=== PATIENT | female | born 1960 | race Caucasian/White ===

== ENCOUNTER → 2016-10-04 | Outpatient (REF) | payer OTHER ==
[2016-10-04 18:01] LABS: LUTEINIZING HORMONE 39.9 mIU/mL
[2016-10-04 18:02] LABS: FOLLICLE STIMULATING HORMONE 128.2 mIU/mL
== END ==
LOC: M LAB REF 16:13
PROVIDERS: ATTEND Nurse Practitioner Family
DX: N95.9 Unspecified menopausal and perimenopausal disorder (principal)

== ENCOUNTER 2016-10-16 14:13 | Emergency (ER) | payer OTHER ==
[2016-10-16] MEDS ORDERED: GI COCKTAIL 50ML BTL(HYOSCYAMINE/MAALOX/LIDOCAINE VISCOUS)(1:3:1) As Ordered ONE (14:42)
[2016-10-16] MEDS ORDERED: ASPIRIN 81 MG CHEW TABLET As Ordered ONE (14:42)
[2016-10-16 15:03] LABS: BASO # 0.1 K/mm3 (0.0-0.2); BASO % 2.1 % (0.0-1.0); EOS # 0.2 K/mm3 (0.0-0.50); LARGE UNSTAINED CELL # 0.1 K/mm3 (0.0-0.4); LARGE UNSTAINED CELL % 2.1 % (0.0-4.0); LYMPH # 1.2 K/mm3 (1.5-4.5); LYMPH % 20.2 % (24.0-44.0); MEAN CORPUSCULAR HGB CONC 33.9 g/dl (32.0-36.5); MEAN CORPUSCULAR VOLUME 91.5 fl (80.0-96.0); MONO # 0.3 K/mm3 (0.0-0.8); MONO % 6.2 % (0.0-5.0); NEUTROPHILS # 3.7 K/mm3 (1.8-7.7); NEUTROPHILS % 66.5 % (36.0-66.0); PLATELET COUNT, AUTOMATED 246 k/mm3 (150-450); RED CELL DISTRIBUTION WIDTH 13.6 % (11.5-14.5); WHITE BLOOD COUNT 5.5 K/mm3 (4.0-10.0)
[2016-10-16 15:28] LABS: ANION GAP 8 MEQ/L (8-16); BLOOD UREA NITROGEN 20 MG/DL (7-18); CALCIUM LEVEL 9.1 MG/DL (8.5-10.1); CARBON DIOXIDE LEVEL 28 MEQ/L (21-32); CHLORIDE LEVEL 108 MEQ/L (98-107); CREATININE FOR GFR 0.77 MG/DL (0.55-1.02); GLOMERULAR FILTRATION RATE > 60.0 (>51); GLUCOSE, FASTING 106 MG/DL (70-105); POTASSIUM SERUM 4.1 MEQ/L (3.5-5.1); SODIUM LEVEL 144 MEQ/L (136-145)
[2016-10-16] MEDS ORDERED: ISOVUE-370 76% 100ML VIAL (Q9967) As Ordered ONE (16:07)
--- NOTE | 2016-10-16 21:40 | EDDOCDS ---
Nurse's Notes [facility] Name: Radha Azul Age: 55 yrs Sex: Female : 1960 Arrival Date: 10/16/2016 Time: 14:13 Bed OBSERVATION Private MD: Cathy Benedict Diagnosis: Chest pain, unspecified Presentation: 10/16 14:22 Presenting complaint: Patient states: chest pains for a couple days has worsened. hs1 Patient points to center of chest. Reports pain does not move anywhere however pain in back between shoulder blades feels like pressure. 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 Patient reports pain is different today. Aspirin was not taken prior to arrival. Adult Sepsis Screening: The patient does not have new or worsening altered mentation. Patient's respiratory rate is less than 22. Systolic blood pressure is greater than 100. Patient has a qSOFA score of 0- Negative Sepsis Screen. Suicide/Homicide risk assessment- the patient denies having any suicidal and/or homicidal ideations and does not present with any other emotional, behavioral or mental health complaints. 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 Transition of care: patient was not received from another setting of care. Red Flag criteria, patient assessed and taken directly to a bed. 14:22 Acuity: LEONARDO Level 2 hs1 14:22 Method Of Arrival: Walkin/Carried/Asstd hs1 Triage Assessment: 14:37 General: Appears in no apparent distress, comfortable, Behavior is appropriate for age, hs1 cooperative. Pain: Location: mid-sternal area Pain currently is 3 out of 10 on a pain scale. HIV screening NA for this visit Offered previously. Cardiovascular: Chest pain is described as mild, radiates Does not radiate. episodes are continuous began couple days ago. 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 Ambien 12.5 mg Oral nightly 2. Iron CR 250 mg Oral cpER 3. Estroven 155 mg oral cap 4. multivitamin Oral cap daily - PMHx: Anemia; insomnia; - PSHx: Knee surgery- Left; D & C; - Social history: Smoking status: Patient states was never smoker of tobacco. No barriers to communication noted, The patient speaks fluent Kiswahili, Speaks appropriately for age. - Family history: Not pertinent. - : The pt / caregiver states he / she is not on anticoagulants. Home medication list is obtained from the patient. - Exposure Risk Screening:: None identified. Screenin:49 Screening information is obtained from the patient. Fall risk: No risks identified. kc3 Assistance ADL's: requires no assistance with activities of daily living. Abuse/DV Screen: The patient / caregiver reports he/she is: not in a situation that causes fear, pain or injury. Nutritional screening: No deficits noted. Advance Directives: Currently, there is no health care proxy. home support is adequate. Assessment: 15:47 General: Appears in no apparent distress, comfortable, Behavior is appropriate for age, kc3 cooperative. Pain: Location: chest Pain currently is 3 out of 10 on a pain scale. Neurological: Level of Consciousness is awake, alert, obeys commands, Oriented to person, place, time. Cardiovascular: Rhythm is sinus rhythm Chest pain quality is pressure, radiates Does not radiate. Respiratory: Respiratory effort is even, unlabored, Respiratory pattern is regular, symmetrical. Derm: Skin is pink, warm & dry. Musculoskeletal: Circulation, motion, and sensation intact. 16:40 General: Appears in no apparent distress, comfortable, Behavior is appropriate for age, kc3 cooperative. Pain: Location: chest Pain currently is 2 out of 10 on a pain scale. Neurological: Level of Consciousness is awake, alert, obeys commands, Oriented to person, place, time. Cardiovascular: Rhythm is sinus rhythm. Respiratory: Respiratory effort is even, unlabored, Respiratory pattern is regular, symmetrical. Derm: Skin is pink, warm & dry. 17:52 General: Appears in no apparent distress, comfortable, Behavior is appropriate for age, kc3 cooperative. Pain: Location: chest. Neurological: Level of Consciousness is awake, alert, obeys commands. Cardiovascular: Rhythm is sinus rhythm. Respiratory: Respiratory effort is even, unlabored, Respiratory pattern is regular, symmetrical. Derm: Skin is pink, warm & dry. 18:45 Pain: Location: chest Pain currently is 1 out of 10 on a pain scale. Neurological: kc3 Level of Consciousness is awake, alert, obeys commands, Oriented to person, place, time. Cardiovascular: Rhythm is sinus rhythm. Respiratory: Respiratory effort is even, unlabored. Derm: Skin is pink, warm & dry. 19:13 General: Appears in no apparent distress, comfortable, Behavior is appropriate for age, kc3 cooperative. 19:33 General: Appears in no apparent distress, comfortable, Behavior is appropriate for age, af2 cooperative. General: Assumed care of pt at this time from ANDRIY Guy. Pt updated regarding plan of care at this time. . Neurological: Level of Consciousness is awake, alert, obeys commands, Oriented to person, place, time. Cardiovascular: Rhythm is sinus rhythm No ectopy. Chest pain is denied. Respiratory: Airway is patent Respiratory effort is even, unlabored, Breath sounds are clear bilaterally. Derm: Skin is pink, warm & dry. 20:30 General: Appears in no apparent distress, comfortable, Behavior is appropriate for age, af2 cooperative. Neurological: Level of Consciousness is awake, alert, obeys commands, Oriented to person, place, time. Respiratory: Airway is patent Respiratory effort is even, unlabored. Derm: Skin is normal. 21:38 General: Appears in no apparent distress, comfortable, Behavior is appropriate for age, af2 cooperative. Neurological: Level of Consciousness is awake, alert, obeys commands, Oriented to person, place, time. Respiratory: Airway is patent Respiratory effort is even, unlabored. Derm: Skin is pink, warm & dry. Vital Signs: 14:14 BP 113 / 74; Pulse 74; Resp 18 S; Temp 97.6(O); Pulse Ox 98% on R/A; Weight 65.77 kg dd6 (R); Height 5 ft. 4 in. (162.56 cm) (R); 14:41 BP 135 / 75 (auto/); kc3 14:42 Pulse 70 MON; Pulse Ox 98% ; kc3 14:58 BP 149 / 79 (auto/); kc3 14:58 Pulse 72 MON; Pulse Ox 97% ; kc3 15:22 BP 128 / 80 (auto/); kc3 15:22 Pulse 66 MON; Pulse Ox 96% ; kc3 15:26 BP 123 / 62 (auto/); kc3 15:27 Pulse 66 MON; Pulse Ox 96% ; kc3 15:41 BP 129 / 76 (auto/); kc3 15:42 Pulse 70 MON; Pulse Ox 96% ; kc3 15:56 BP 124 / 75 (auto/); kc3 15:57 Pulse 70 MON; Pulse Ox 96% ; kc3 16:11 BP 132 / 77 (auto/); kc3 16:11 Pulse 64 MON; Pulse Ox 96% ; kc3 16:26 BP 127 / 69 (auto/); kc3 16:26 Pulse 62 MON; Pulse Ox 97% ; kc3 16:41 BP 122 / 65 (auto/); kc3 16:42 Pulse 66 MON; Pulse Ox 97% ; kc3 16:56 Pulse 68 MON; Pulse Ox 97% ; kc3 16:56 BP 123 / 67 (auto/); kc3 17:11 BP 122 / 67 (auto/); kc3 17:12 Pulse 64 MON; Pulse Ox 97% ; kc3 17:25 Pulse 66 MON; Pulse Ox 97% ; kc3 17:26 BP 128 / 71 (auto/); kc3 17:41 BP 120 / 66 (auto/); kc3 17:42 Pulse 72 MON; Pulse Ox 94% ; kc3 19:26 BP 109 / 58 (auto/); af2 19:27 Pulse 68 MON; Resp 18 S; Pulse Ox 97% on R/A; af2 19:41 BP 107 / 61 (auto/); af2 19:42 Pulse 70 MON; Resp 18 S; Pulse Ox 97% ; af2 19:56 BP 102 / 60 (auto/); af2 19:57 Pulse 78 MON; Resp 18; Pulse Ox 97% on R/A; af2 20:11 BP 110 / 66 (auto/); af2 20:12 Pulse 74 MON; Resp 18 S; Pulse Ox 96% on R/A; af2 21:39 BP 114 / 67; Pulse 78; Resp 18 S; Temp 96.8(O); Pulse Ox 97% on R/A; Pain 0/10; af2 14:14 Body Mass Index 24.89 (65.77 kg, 162.56 cm) dd6 Vitals: 14:14 Log In Time: October 16, 2016 at 14:12. dd6 14:15 RN notified that patient meets Red Flag criteria. dd6 ED Course: 14:14 Patient visited by Bhanu Stone PCA. dd6 14:14 Cathy Benedict is Private Physician. dd6 14:14 Patient moved to Waiting dd6 14:16 Patient moved to I6 / 28 hs1 14:24 EKG done. (by ED staff). Reviewed by Estephanie Reyes MD. ct3 14:25 Triage Initiated hs1 14:27 Mannie Reyes MD is Attending Physician. br1 14:27 Malena Valero,RN is Primary Nurse. br1 14:27 Patient moved to 9 br1 14:39 Patient visited by Mannie Reyes MD. br1 14:56 Patient visited by Sofia Jain RN. ead 14:56 Basic Metabolic Profile Sent. ead 14:56 CBC with Diff Sent. ead 14:56 Cardiac Injury Profile Sent. ead 14:57 Troponin Sent. ead 14:57 Inserted saline lock: 20 gauge in right antecubital area and blood collected. The ead patient tolerated the procedure well. 15:24 Patient visited by Malena Valero RN. kc3 15:49 The patient / caregiver is instructed regarding the plan of care and ED course. Cardiac kc3 monitor on. Pulse ox on. NIBP on. 16:26 [facility] Payment Agreement was scanned into [employer] and attached to record. ks16 16:27 Patient visited by Malena Valero,ANDRIY. kc3 17:07 Patient visited by Mannie Reyes MD. br1 17:07 Patient visited by Mannie Reyes MD. br1 17:50 Patient visited by Malena Valero RN. kc3 18:10 Patient moved to OBSERVATION br1 19:07 Alyse Rivera,RN is Primary Nurse. af2 19:35 Patient visited by Alyse Rivera RN. af2 19:35 No procedures done that require assistance. af2 19:36 Patient visited by Mannie Reyes MD. br1 20:32 EKG done. (by ED staff). Reviewed by Mannie Reyes MD. ajs 21:26 Cathy Benedict is Referral Physician. br1 21:26 Demario Ogden is Referral Physician. br1 21:39 Discontinued IV lock intact, bleeding controlled, pressure dressing applied, No af2 redness/swelling at site. Administered Medications: 14:45 Drug: Aspirin 324 mg [aspirin 81 mg chewable tablet (4 tabs)] Route: PO; ead 14:45 Drug: GI Cocktail - (Alum-Mag Hydroxide-Simeth Suspension 225 mg-200 mg-25 mg/5 mL 30 ead ml, Lidocaine Liquid 2 % 10 ml, Hyoscyamine Liquid 10 ml) Route: PO; 17:34 Drug: Nitrostat 0.4 mg [Nitrostat 0.4 mg sublingual tablet (1 tabs)] Route: Sublingual; kc3 18:30 Drug: Nitrostat 0.4 mg [Nitrostat 0.4 mg sublingual tablet (1 tabs)] Route: Sublingual; kc3 Order Results: Lab Order: Basic Metabolic Profile; SPEC'M 10/16/16 14:54 Test: GLUCOSE, FASTING; Value: 106; Range: 70-105; Abnormal: Above high normal; Units: MG/DL; Status: F Test: BLOOD UREA NITROGEN; Value: 20; Range: 7-18; Abnormal: Above high normal; Units: MG/DL; Status: F Test: CREATININE FOR GFR; Value: 0.77; Range: 0.55-1.02; Units: MG/DL; Status: F Test: GLOMERULAR FILTRATION RATE; Value: > 60.0; Range: >51; Status: F Test: SODIUM LEVEL; Value: 144; Range: 136-145; Units: MEQ/L; Status: F Test: POTASSIUM SERUM; Value: 4.1; Range: 3.5-5.1; Units: MEQ/L; Status: F Test: CHLORIDE LEVEL; Value: 108; Range: 98-107; Abnormal: Above high normal; Units: MEQ/L; Status: F Test: CARBON DIOXIDE LEVEL; Value: 28; Range: 21-32; Units: MEQ/L; Status: F Test: ANION GAP; Value: 8; Range: 8-16; Units: MEQ/L; Status: F Test: CALCIUM LEVEL; Value: 9.1; Range: 8.5-10.1; Units: MG/DL; Status: F Test Note: ; Units are mL/min/1.73 m2 Chronic Kidney Disease Staging per NKF: Stage I & II GFR >=60 Normal to Mildly Decreased Stage III GFR 30-59 Moderately Decreased Stage IV GFR 15-29 Severely Decreased Stage V GFR <15 Very Little GFR Left ESRD GFR <15 on C PYTHON DEVELOPER Lab Order: CBC with Diff; SPEC'M 10/16/16 14:54 Test: WHITE BLOOD COUNT; Value: 5.5; Range: 4.0-10.0; Units: K/mm3; Status: F Test: RED BLOOD COUNT; Value: 4.74; Range: 4.00-5.40; Units: M/mm3; Status: F Test: HEMOGLOBIN; Value: 14.7; Range: 12.0-16.0; Units: g/dl; Status: F Test: HEMATOCRIT; Value: 43.4; Range: 36.0-47.0; Units: %; Status: F Test: MEAN CORPUSCULAR VOLUME; Value: 91.5; Range: 80.0-96.0; Units: fl; Status: F Test: MEAN CORPUSCULAR HEMOGLOBIN; Value: 31.0; Range: 27.0-33.0; Units: pg; Status: F Test: MEAN CORPUSCULAR HGB CONC; Value: 33.9; Range: 32.0-36.5; Units: g/dl; Status: F Test: RED CELL DISTRIBUTION WIDTH; Value: 13.6; Range: 11.5-14.5; Units: %; Status: F Test: PLATELET COUNT, AUTOMATED; Value: 246; Range: 150-450; Units: k/mm3; Status: F Test: NEUTROPHILS %; Value: 66.5; Range: 36.0-66.0; Abnormal: Above high normal; Units: %; Status: F Test: LYMPH %; Value: 20.2; Range: 24.0-44.0; Abnormal: Below low normal; Units: %; Status: F Test: MONO %; Value: 6.2; Range: 0.0-5.0; Abnormal: Above high normal; Units: %; Status: F Test: EOS %; Value: 3.0; Range: 0.0-3.0; Units: %; Status: F Test: BASO %; Value: 2.1; Range: 0.0-1.0; Abnormal: Above high normal; Units: %; Status: F Test: LARGE UNSTAINED CELL %; Value: 2.1; Range: 0.0-4.0; Units: %; Status: F Test: NEUTROPHILS #; Value: 3.7; Range: 1.8-7.7; Units: K/mm3; Status: F Test: LYMPH #; Value: 1.2; Range: 1.5-4.5; Abnormal: Below low normal; Units: K/mm3; Status: F Test: MONO #; Value: 0.3; Range: 0.0-0.8; Units: K/mm3; Status: F Test: EOS #; Value: 0.2; Range: 0.0-0.50; Units: K/mm3; Status: F Test: BASO #; Value: 0.1; Range: 0.0-0.2; Units: K/mm3; Status: F Test: LARGE UNSTAINED CELL #; Value: 0.1; Range: 0.0-0.4; Units: K/mm3; Status: F Lab Order: Cardiac Injury Profile; [facility] 10/16/16 14:54 Test: CPK CREATINE PHOSPHOKINASE; Value: 71; Range: 26-192; Units: U/L; Status: F Test: CK-MB VALUE MASS; Value: 1.0; Range: 0.0-3.6; Units: NG/ML; Status: F Test: MB/CK RELATIVE INDEX; Value: 1.40; Range: < OR =4; Status: F Test Note: ; DIAGNOSIS CRITERIA MMB ng/ml Relative Index (RI) NON-AMI < or = 5 N/A REID ZONE > 5 < or = 4 AMI > 5 > 4 Lab Order: Troponin; [facility] 10/16/16 14:54 Test: TROPONIN I; Value: < 0.02; Range: < 0.10; Units: NG/ML; Status: F Test Note: ; Troponin I Reference Interval for [employer] LOCI: 99th Percentile= 0.00-0.045 ng/ml Risk Stratification: <= 0.10 ng/ml Decreased Risk for Adverse Clinical Events. 0.10-1.50 ng/ml Increased Risk for Adverse Clinical Events. Evaluation of additional criterion and/or repeat testing in 2-6 hours is suggested to rule out myocardial damage. >= 1.50 ng/ml Indicative of Myocardial Injury. Lab Order: CARDIAC MARKER PANEL; [facility] 10/16/16 20:19 Test: CPK CREATINE PHOSPHOKINASE; Value: 58; Range: 26-192; Units: U/L; Status: F Test: CK-MB VALUE MASS; Value: 1.0; Range: 0.0-3.6; Units: NG/ML; Status: F Test: MB/CK RELATIVE INDEX; Value: 1.72; Range: < OR =4; Status: F Test: TROPONIN I; Value: < 0.02; Range: < 0.10; Units: NG/ML; Status: F Test Note: ; DIAGNOSIS CRITERIA MMB ng/ml Relative Index (RI) NON-AMI < or = 5 N/A REID ZONE > 5 < or = 4 AMI > 5 > 4 Outcome: 16:27 CT Study completed. kc3 19:35 Discharge Assessment: patient administered narcotics - no. Condition: stable. Property af2 :Personal belongings accompany Pt. 21:26 Discharge ordered by Provider. br1 21:37 The following High Risk Discharge criteria are identified: None. Discharged to home af2 ambulatory. Discharge instructions given to patient, Instructed on discharge instructions, follow up and referral plans. Demonstrated understanding of instructions, Pt was receptive of discharge instructions/ teaching. 21:39 Patient left the ED. af2 Signatures: Mannie Reyes MD MD br1 Bhanu Stone, MEDICAL TERMINOLOGIST MEDICAL TERMINOLOGIST dd6 Jyothi Aden RN RN hs1 Agustina Webster, MEDICAL TERMINOLOGIST MEDICAL TERMINOLOGIST ct3 Rema Bey EmilyRN RN Alyse Cardona RN RN af2 Malena Valero RN RN kc3 Eli Stroud, Reg Reg ks16 MTDD
--- NOTE | 2016-10-16 21:40 | EDDOCDS ---
Physician Documentation [facility] Name: Radha Azul Age: 55 yrs Sex: Female : 1960 Arrival Date: 10/16/2016 Time: 14:13 Bed OBSERVATION Private MD: Cathy Benedict Disposition: 10/16/16 21:26 Discharged to Home/Self Care. Impression: Chest pain, unspecified. - Condition is Stable. - Discharge Instructions: Nonspecific Chest Pain. - Medication Reconciliation, Local Pharmacy Hours form. - Follow up: Cathy Benedict; When: 2 - 3 days; Reason: Recheck today's complaints. Follow up: Demario Ogden; When: 2 - 3 days; Reason: Recheck today's complaints. - Problem is new. - Symptoms are resolved. - Notes: You were seen in the ED for chest pain. Bloodwork along with EKG of the heart, chest Xray, cardiac monitoring, chest Xray and CT scan of the chest showed no acute findings. We have consulted with cardiology as well. As you are feeling better you may return home to follow up with both your primary doctor as well as your hospital social worker this week for rechecks in their offices - please call to arrange to be seen. Return to the ED for any return of chest pain, trouble breathing, lightheadedness, loss of consciousness or any other concerns. Historical: - Allergies: Keflex; - Home Meds: 1. Ambien 12.5 mg Oral nightly 2. Iron CR 250 mg Oral cpER 3. Estroven 155 mg oral cap 4. multivitamin Oral cap daily - PMHx: Anemia; insomnia; - PSHx: Knee surgery- Left; D & C; - Social history: Smoking status: Patient states was never smoker of tobacco. No barriers to communication noted, The patient speaks fluent Maltese, Speaks appropriately for age. - Family history: Not pertinent. - : The pt / caregiver states he / she is not on anticoagulants. Home medication list is obtained from the patient. - Exposure Risk Screening:: None identified. 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 4 in. (162.56 cm) (R); 14:41 BP 135 / 75 (auto/); kc3 14:42 Pulse 70 MON; Pulse Ox 98% ; kc3 14:58 BP 149 / 79 (auto/); kc3 14:58 Pulse 72 MON; Pulse Ox 97% ; kc3 15:22 BP 128 / 80 (auto/); kc3 15:22 Pulse 66 MON; Pulse Ox 96% ; kc3 15:26 BP 123 / 62 (auto/); kc3 15:27 Pulse 66 MON; Pulse Ox 96% ; kc3 15:41 BP 129 / 76 (auto/); kc3 15:42 Pulse 70 MON; Pulse Ox 96% ; kc3 15:56 BP 124 / 75 (auto/); kc3 15:57 Pulse 70 MON; Pulse Ox 96% ; kc3 16:11 BP 132 / 77 (auto/); kc3 16:11 Pulse 64 MON; Pulse Ox 96% ; kc3 16:26 BP 127 / 69 (auto/); kc3 16:26 Pulse 62 MON; Pulse Ox 97% ; kc3 16:41 BP 122 / 65 (auto/); kc3 16:42 Pulse 66 MON; Pulse Ox 97% ; kc3 16:56 Pulse 68 MON; Pulse Ox 97% ; kc3 16:56 BP 123 / 67 (auto/); kc3 17:11 BP 122 / 67 (auto/); kc3 17:12 Pulse 64 MON; Pulse Ox 97% ; kc3 17:25 Pulse 66 MON; Pulse Ox 97% ; kc3 17:26 BP 128 / 71 (auto/); kc3 17:41 BP 120 / 66 (auto/); kc3 17:42 Pulse 72 MON; Pulse Ox 94% ; kc3 19:26 BP 109 / 58 (auto/); af2 19:27 Pulse 68 MON; Resp 18 S; Pulse Ox 97% on R/A; af2 19:41 BP 107 / 61 (auto/); af2 19:42 Pulse 70 MON; Resp 18 S; Pulse Ox 97% ; af2 19:56 BP 102 / 60 (auto/); af2 19:57 Pulse 78 MON; Resp 18; Pulse Ox 97% on R/A; af2 20:11 BP 110 / 66 (auto/); af2 20:12 Pulse 74 MON; Resp 18 S; Pulse Ox 96% on R/A; af2 21:39 BP 114 / 67; Pulse 78; Resp 18 S; Temp 96.8(O); Pulse Ox 97% on R/A; Pain 0/10; af2 14:14 Body Mass Index 24.89 (65.77 kg, 162.56 cm) dd6 MDM: 14:18 ECG WITH READING ER PHYS+CARDIAG ordered. EDMS 14:28 Legal Job Titles/Pulse Ox/q 30 min VS ordered. br1 14:28 IV Saline Lock ordered. br1 14:28 Rhythm Strip to chart ordered. br1 14:28 Undress patient appropriately for examination ordered. br1 14:30 Basic Metabolic Profile Ordered. EDMS 14:30 CBC with Diff Ordered. EDMS 14:30 Cardiac Injury Profile Ordered. EDMS 14:30 Troponin Ordered. EDMS 14:39 Aspirin 324 mg PO once ordered. br1 14:39 GI Cocktail - (Alum-Mag Hydroxide-Simeth 30 ml, Lidocaine 10 ml, Hyoscyamine 10 ml) PO br1 once; Pre-mixed 50mL unit dose ordered. 14:41 Chest, 2 View (pa\E\lat) Ordered. EDMS 15:47 Basic Metabolic Profile Reviewed. br1 15:47 CBC with Diff Reviewed. br1 15:47 Cardiac Injury Profile Reviewed. br1 15:47 Troponin Reviewed. br1 15:49 CT Chest Angio R/O PE Ordered. EDMS 16:25 Financial registration complete. ks16 16:26 [facility] Payment Agreement was scanned into [employer] and attached to record. ks16 17:04 Repeat EKG (put time details section) ordered. br1 17:04 Redraw CIP &Troponin (put time in details section) ordered. br1 17:07 Nitrostat 0.4 mg Sublingual once ordered. br1 17:28 Repeat EKG (put time details section) complete. deg 17:28 Redraw CIP &Troponin (put time in details section) complete. deg 17:29 ECG WITH READING ER PHYS ordered. EDMS 17:29 CARDIAC MARKER PANEL Ordered. EDMS 17:53 REGULAR+DIET ordered. EDMS 18:05 Nitrostat 0.4 mg Sublingual once ordered. br1 21:09 CARDIAC MARKER PANEL Reviewed. br1 Administered Medications: 14:45 Drug: Aspirin 324 mg [aspirin 81 mg chewable tablet (4 tabs)] Route: PO; ead 14:45 Drug: GI Cocktail - (Alum-Mag Hydroxide-Simeth Suspension 225 mg-200 mg-25 mg/5 mL 30 ead ml, Lidocaine Liquid 2 % 10 ml, Hyoscyamine Liquid 10 ml) Route: PO; 17:34 Drug: Nitrostat 0.4 mg [Nitrostat 0.4 mg sublingual tablet (1 tabs)] Route: Sublingual; kc3 18:30 Drug: Nitrostat 0.4 mg [Nitrostat 0.4 mg sublingual tablet (1 tabs)] Route: Sublingual; kc3 Signatures: Dispatcher [employer] EDMS Hawa Molina, Tour Consultant Unit deg Mannie Reyes MD MD br1 Jyothi Aden RN RN hs1 Alyse Rivera RN RN af2 Malena Valero RN RN kc3 Eli Stroud, Reg Reg ks16 Sofia Jain RN The chart was reviewed and I authenticate all verbal orders and agree with the evaluation and treatment provided.Attachments: 16:26 [facility] Payment Agreement ks16 MTDD
--- NOTE | 2016-10-17 15:39 | ECGEPIP ---
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
--- NOTE | 2016-10-17 15:46 | ECGEPIP ---
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
--- NOTE | 2016-10-18 11:04 | REP ---
PA and lateral chest: Comparisons twelfth 14-1009. The lung haney are clear. The cardiac size is normal The zhane, mediastinum, and bony thorax are unremarkable. Impression: Negative PA and lateral chest. There is no interval change. Signed by Zohaib Hale MD 10/16/2016 04:35 P
--- NOTE | 2016-10-18 11:05 | REP ---
Chest CT, CT pulmonary angiography: There are no comparison chest CT studies. There are no emboli in the pulmonary trunk or central pulmonary arteries. There are no emboli in the pulmonary artery lobe or segment branches. There are no infiltrates or effusions. There are no masses or nodules. There is no mediastinal, hilar or axillary adenopathy. The thoracic aorta is unremarkable. Cardiac size is normal. There is no pericardial effusion. The visualized upper abdominal contents are unremarkable. Impression: There is no pulmonary embolus. Negative CT study of the chest. Signed by Zohaib Hale MD 10/16/2016 04:46 P
--- NOTE | 2016-10-18 22:41 | EDDOCDS ---
Physician Documentation [facility] Name: Radha Azul Age: 55 yrs Sex: Female : 1960 Arrival Date: 10/16/2016 Time: 14:13 Bed OBSERVATION Private MD: Cathy Benedict Disposition: 10/16/16 21:26 Discharged to Home/Self Care. Impression: Chest pain, unspecified. - Condition is Stable. - Discharge Instructions: Nonspecific Chest Pain. - Medication Reconciliation, Local Pharmacy Hours form. - Follow up: Cathy Benedict; When: 2 - 3 days; Reason: Recheck today's complaints. Follow up: Demario Ogden; When: 2 - 3 days; Reason: Recheck today's complaints. - Problem is new. - Symptoms are resolved. - Notes: You were seen in the ED for chest pain. Bloodwork along with EKG of the heart, chest Xray, cardiac monitoring, chest Xray and CT scan of the chest showed no acute findings. We have consulted with cardiology as well. 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 Return to the ED for any return of chest pain, trouble breathing, lightheadedness, loss of consciousness or any other concerns. Historical: - Allergies: Keflex; - Home Meds: 1. Ambien 12.5 mg Oral nightly 2. Iron CR 250 mg Oral cpER 3. Estroven 155 mg oral cap 4. multivitamin Oral cap daily - PMHx: Anemia; insomnia; - PSHx: Knee surgery- Left; D & C; - Social history: Smoking status: Patient states was never smoker of tobacco. No barriers to communication noted, The patient speaks fluent Latvian, Speaks appropriately for age. - Family history: Not pertinent. - : The pt / caregiver states he / she is not on anticoagulants. Home medication list is obtained from the patient. - Exposure Risk Screening:: None identified. 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 4 in. (162.56 cm) (R); 14:41 BP 135 / 75 (auto/); kc3 14:42 Pulse 70 MON; Pulse Ox 98% ; kc3 14:58 BP 149 / 79 (auto/); kc3 14:58 Pulse 72 MON; Pulse Ox 97% ; kc3 15:22 BP 128 / 80 (auto/); kc3 15:22 Pulse 66 MON; Pulse Ox 96% ; kc3 15:26 BP 123 / 62 (auto/); kc3 15:27 Pulse 66 MON; Pulse Ox 96% ; kc3 15:41 BP 129 / 76 (auto/); kc3 15:42 Pulse 70 MON; Pulse Ox 96% ; kc3 15:56 BP 124 / 75 (auto/); kc3 15:57 Pulse 70 MON; Pulse Ox 96% ; kc3 16:11 BP 132 / 77 (auto/); kc3 16:11 Pulse 64 MON; Pulse Ox 96% ; kc3 16:26 BP 127 / 69 (auto/); kc3 16:26 Pulse 62 MON; Pulse Ox 97% ; kc3 16:41 BP 122 / 65 (auto/); kc3 16:42 Pulse 66 MON; Pulse Ox 97% ; kc3 16:56 Pulse 68 MON; Pulse Ox 97% ; kc3 16:56 BP 123 / 67 (auto/); kc3 17:11 BP 122 / 67 (auto/); kc3 17:12 Pulse 64 MON; Pulse Ox 97% ; kc3 17:25 Pulse 66 MON; Pulse Ox 97% ; kc3 17:26 BP 128 / 71 (auto/); kc3 17:41 BP 120 / 66 (auto/); kc3 17:42 Pulse 72 MON; Pulse Ox 94% ; kc3 19:26 BP 109 / 58 (auto/); af2 19:27 Pulse 68 MON; Resp 18 S; Pulse Ox 97% on R/A; af2 19:41 BP 107 / 61 (auto/); af2 19:42 Pulse 70 MON; Resp 18 S; Pulse Ox 97% ; af2 19:56 BP 102 / 60 (auto/); af2 19:57 Pulse 78 MON; Resp 18; Pulse Ox 97% on R/A; af2 20:11 BP 110 / 66 (auto/); af2 20:12 Pulse 74 MON; Resp 18 S; Pulse Ox 96% on R/A; af2 21:39 BP 114 / 67; Pulse 78; Resp 18 S; Temp 96.8(O); Pulse Ox 97% on R/A; Pain 0/10; af2 14:14 Body Mass Index 24.89 (65.77 kg, 162.56 cm) dd6 MDM: 14:18 ECG WITH READING ER PHYS+CARDIAG ordered. EDMS 14:28 Personal Support Worker/Pulse Ox/q 30 min VS ordered. br1 14:28 IV Saline Lock ordered. br1 14:28 Rhythm Strip to chart ordered. br1 14:28 Undress patient appropriately for examination ordered. br1 14:30 Basic Metabolic Profile Ordered. EDMS 14:30 CBC with Diff Ordered. EDMS 14:30 Cardiac Injury Profile Ordered. EDMS 14:30 Troponin Ordered. EDMS 14:39 Aspirin 324 mg PO once ordered. br1 14:39 GI Cocktail - (Alum-Mag Hydroxide-Simeth 30 ml, Lidocaine 10 ml, Hyoscyamine 10 ml) PO br1 once; Pre-mixed 50mL unit dose ordered. 14:41 Chest, 2 View (pa\E\lat) Ordered. EDMS 15:47 Basic Metabolic Profile Reviewed. br1 15:47 CBC with Diff Reviewed. br1 15:47 Cardiac Injury Profile Reviewed. br1 15:47 Troponin Reviewed. br1 15:49 CT Chest Angio R/O PE Ordered. EDMS 16:25 Financial registration complete. ks16 16:26 [facility] Payment Agreement was scanned into [employer] and attached to record. ks16 17:04 Repeat EKG (put time details section) ordered. br1 17:04 Redraw CIP &Troponin (put time in details section) ordered. br1 17:07 Nitrostat 0.4 mg Sublingual once ordered. br1 17:28 Repeat EKG (put time details section) complete. deg 17:28 Redraw CIP &Troponin (put time in details section) complete. deg 17:29 ECG WITH READING ER PHYS ordered. EDMS 17:29 CARDIAC MARKER PANEL Ordered. EDMS 17:53 REGULAR+DIET ordered. EDMS 18:05 Nitrostat 0.4 mg Sublingual once ordered. br1 21:09 CARDIAC MARKER PANEL Reviewed. br1 10/17 19:56 ECG/EKG was scanned into [employer] and attached to record. kf3 21:51 T-Sheet-- Draft Copy was scanned into [employer] and attached to record. klr Administered Medications: 10/16 14:45 Drug: Aspirin 324 mg [aspirin 81 mg chewable tablet (4 tabs)] Route: PO; ead 14:45 Drug: GI Cocktail - (Alum-Mag Hydroxide-Simeth Suspension 225 mg-200 mg-25 mg/5 mL 30 ead ml, Lidocaine Liquid 2 % 10 ml, Hyoscyamine Liquid 10 ml) Route: PO; 17:34 Drug: Nitrostat 0.4 mg [Nitrostat 0.4 mg sublingual tablet (1 tabs)] Route: Sublingual; kc3 18:30 Drug: Nitrostat 0.4 mg [Nitrostat 0.4 mg sublingual tablet (1 tabs)] Route: Sublingual; kc3 Signatures: Dispatcher [employer] EDMS Hawa Molina, Marine Insulator Unit deg Yossi Madsen, Reg Reg kf3 Mannie Reyes MD MD br1 Jyothi Aden RN RN hs1 Alyse RiveraRN RN af2 Malena Valero RN RN kc3 Eli Stroud, Reg Reg ks16 Estefany Chu Emily RN ead The chart was reviewed and I authenticate all verbal orders and agree with the evaluation and treatment provided.Attachments: 16:26 [facility] Payment Agreement [email or web address] 10/17 19:56 ECG/EKG kf3 21:51 T-Sheet-- Draft Copy klr Chart Complete MTDD
--- NOTE | 2016-10-18 22:41 | EDDOCDS ---
Physician Documentation [facility] Name: Radha Azul Age: 55 yrs Sex: Female : 1960 Arrival Date: 10/16/2016 Time: 14:13 Bed OBSERVATION Private MD: Cathy Benedict Disposition: 10/16/16 21:26 Discharged to Home/Self Care. Impression: Chest pain, unspecified. - Condition is Stable. - Discharge Instructions: Nonspecific Chest Pain. - Medication Reconciliation, Local Pharmacy Hours form. - Follow up: Cathy Benedict; When: 2 - 3 days; Reason: Recheck today's complaints. Follow up: Demario Ogden; When: 2 - 3 days; Reason: Recheck today's complaints. - Problem is new. - Symptoms are resolved. - Notes: You were seen in the ED for chest pain. Bloodwork along with EKG of the heart, chest Xray, cardiac monitoring, chest Xray and CT scan of the chest showed no acute findings. We have consulted with cardiology as well. As you are feeling better you may return home to follow up with both your primary doctor as well as your bacteriologist fishery this week for rechecks in their offices - please call to arrange to be seen. Return to the ED for any return of chest pain, trouble breathing, lightheadedness, loss of consciousness or any other concerns. Historical: - Allergies: Keflex; - Home Meds: 1. Ambien 12.5 mg Oral nightly 2. Iron CR 250 mg Oral cpER 3. Estroven 155 mg oral cap 4. multivitamin Oral cap daily - PMHx: Anemia; insomnia; - PSHx: Knee surgery- Left; D & C; - Social history: Smoking status: Patient states was never smoker of tobacco. No barriers to communication noted, The patient speaks fluent Montenegrin, Speaks appropriately for age. - Family history: Not pertinent. - : The pt / caregiver states he / she is not on anticoagulants. Home medication list is obtained from the patient. - Exposure Risk Screening:: None identified. 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 4 in. (162.56 cm) (R); 14:41 BP 135 / 75 (auto/); kc3 14:42 Pulse 70 MON; Pulse Ox 98% ; kc3 14:58 BP 149 / 79 (auto/); kc3 14:58 Pulse 72 MON; Pulse Ox 97% ; kc3 15:22 BP 128 / 80 (auto/); kc3 15:22 Pulse 66 MON; Pulse Ox 96% ; kc3 15:26 BP 123 / 62 (auto/); kc3 15:27 Pulse 66 MON; Pulse Ox 96% ; kc3 15:41 BP 129 / 76 (auto/); kc3 15:42 Pulse 70 MON; Pulse Ox 96% ; kc3 15:56 BP 124 / 75 (auto/); kc3 15:57 Pulse 70 MON; Pulse Ox 96% ; kc3 16:11 BP 132 / 77 (auto/); kc3 16:11 Pulse 64 MON; Pulse Ox 96% ; kc3 16:26 BP 127 / 69 (auto/); kc3 16:26 Pulse 62 MON; Pulse Ox 97% ; kc3 16:41 BP 122 / 65 (auto/); kc3 16:42 Pulse 66 MON; Pulse Ox 97% ; kc3 16:56 Pulse 68 MON; Pulse Ox 97% ; kc3 16:56 BP 123 / 67 (auto/); kc3 17:11 BP 122 / 67 (auto/); kc3 17:12 Pulse 64 MON; Pulse Ox 97% ; kc3 17:25 Pulse 66 MON; Pulse Ox 97% ; kc3 17:26 BP 128 / 71 (auto/); kc3 17:41 BP 120 / 66 (auto/); kc3 17:42 Pulse 72 MON; Pulse Ox 94% ; kc3 19:26 BP 109 / 58 (auto/); af2 19:27 Pulse 68 MON; Resp 18 S; Pulse Ox 97% on R/A; af2 19:41 BP 107 / 61 (auto/); af2 19:42 Pulse 70 MON; Resp 18 S; Pulse Ox 97% ; af2 19:56 BP 102 / 60 (auto/); af2 19:57 Pulse 78 MON; Resp 18; Pulse Ox 97% on R/A; af2 20:11 BP 110 / 66 (auto/); af2 20:12 Pulse 74 MON; Resp 18 S; Pulse Ox 96% on R/A; af2 21:39 BP 114 / 67; Pulse 78; Resp 18 S; Temp 96.8(O); Pulse Ox 97% on R/A; Pain 0/10; af2 14:14 Body Mass Index 24.89 (65.77 kg, 162.56 cm) dd6 MDM: 14:18 ECG WITH READING ER PHYS+CARDIAG ordered. EDMS 14:28 Continuity Coordinator/Pulse Ox/q 30 min VS ordered. br1 14:28 IV Saline Lock ordered. br1 14:28 Rhythm Strip to chart ordered. br1 14:28 Undress patient appropriately for examination ordered. br1 14:30 Basic Metabolic Profile Ordered. EDMS 14:30 CBC with Diff Ordered. EDMS 14:30 Cardiac Injury Profile Ordered. EDMS 14:30 Troponin Ordered. EDMS 14:39 Aspirin 324 mg PO once ordered. br1 14:39 GI Cocktail - (Alum-Mag Hydroxide-Simeth 30 ml, Lidocaine 10 ml, Hyoscyamine 10 ml) PO br1 once; Pre-mixed 50mL unit dose ordered. 14:41 Chest, 2 View (pa\E\lat) Ordered. EDMS 15:47 Basic Metabolic Profile Reviewed. br1 15:47 CBC with Diff Reviewed. br1 15:47 Cardiac Injury Profile Reviewed. br1 15:47 Troponin Reviewed. br1 15:49 CT Chest Angio R/O PE Ordered. EDMS 16:25 Financial registration complete. [email or web address] 16:26 [facility] was scanned into [employer] and attached to record. ks16 17:04 Repeat EKG (put time details section) ordered. br1 17:04 Redraw CIP &Troponin (put time in details section) ordered. br1 17:07 Nitrostat 0.4 mg Sublingual once ordered. br1 17:28 Repeat EKG (put time details section) complete. deg 17:28 Redraw CIP &Troponin (put time in details section) complete. deg 17:29 ECG WITH READING ER PHYS ordered. EDMS 17:29 CARDIAC MARKER PANEL Ordered. EDMS 17:53 REGULAR+DIET ordered. EDMS 18:05 Nitrostat 0.4 mg Sublingual once ordered. br1 21:09 CARDIAC MARKER PANEL Reviewed. br1 10/17 19:56 ECG/EKG was scanned into [employer] and attached to record. kf3 21:51 T-Sheet-- Draft Copy was scanned into [employer] and attached to record. klr Administered Medications: 10/16 14:45 Drug: Aspirin 324 mg [aspirin 81 mg chewable tablet (4 tabs)] Route: PO; ead 14:45 Drug: GI Cocktail - (Alum-Mag Hydroxide-Simeth Suspension 225 mg-200 mg-25 mg/5 mL 30 ead ml, Lidocaine Liquid 2 % 10 ml, Hyoscyamine Liquid 10 ml) Route: PO; 17:34 Drug: Nitrostat 0.4 mg [Nitrostat 0.4 mg sublingual tablet (1 tabs)] Route: Sublingual; kc3 18:30 Drug: Nitrostat 0.4 mg [Nitrostat 0.4 mg sublingual tablet (1 tabs)] Route: Sublingual; kc3 Signatures: Dispatcher [employer] EDMS Hawa Molina, Visual Effects Artist Unit deg Yossi Madsen, Reg Reg kf3 Mannie Reyes MD MD br1 Jyothi Aden RN RN hs1 Alyse RiveraRN RN af2 Malena Valero RN RN kc3 Eli Stroud, Reg Reg ks16 Estefany Chu Emily RN ead The chart was reviewed and I authenticate all verbal orders and agree with the evaluation and treatment provided.Attachments: 16:26 [facility] Payment Agreement [email or web address] 10/17 19:56 ECG/EKG kf3 21:51 T-Sheet-- Draft Copy klr Chart Complete MTDD
--- NOTE | 2016-10-18 22:41 | EDDOCDS ---
Nurse's Notes [facility] Name: Radha Ford Age: 55 yrs Sex: Female : 1960 Arrival Date: 10/16/2016 Time: 14:13 Bed OBSERVATION Private MD: Cathy Benedict Diagnosis: Chest pain, unspecified Presentation: 10/16 14:22 Presenting complaint: Patient states: chest pains for a couple days has worsened. hs1 Patient points to center of chest. Reports pain does not move anywhere however pain in back between shoulder blades feels like pressure. Patient reports she went to the utilities ground worker on the and was told has an irregular heart beat however did not appear to have any issues then. Patient reports pain is different today. Aspirin was not taken prior to arrival. Adult Sepsis Screening: The patient does not have new or worsening altered mentation. Patient's respiratory rate is less than 22. Systolic blood pressure is greater than 100. Patient has a qSOFA score of 0- Negative Sepsis Screen. Suicide/Homicide risk assessment- the patient denies having any suicidal and/or homicidal ideations and does not present with any other emotional, behavioral or mental health complaints. Status: Patient is not a room service runner or dependent. Transition of care: patient was not received from another setting of care. Red Flag criteria, patient assessed and taken directly to a bed. 14:22 Acuity: LEONARDO Level 2 hs1 14:22 Method Of Arrival: Walkin/Carried/Asstd hs1 Triage Assessment: 14:37 General: Appears in no apparent distress, comfortable, Behavior is appropriate for age, hs1 cooperative. Pain: Location: mid-sternal area Pain currently is 3 out of 10 on a pain scale. HIV screening NA for this visit Offered previously. Cardiovascular: Chest pain is described as mild, radiates Does not radiate. episodes are continuous began couple days ago. NURSE ASSISTANT: 15:49 LMP N/A - Post-menopause kc3 Historical: - Allergies: Keflex; - Home Meds: 1. Ambien 12.5 mg Oral nightly 2. Iron CR 250 mg Oral cpER 3. Estroven 155 mg oral cap 4. multivitamin Oral cap daily - PMHx: Anemia; insomnia; - PSHx: Knee surgery- Left; D & C; - Social history: Smoking status: Patient states was never smoker of tobacco. No barriers to communication noted, The patient speaks fluent Bulgarian, Speaks appropriately for age. - Family history: Not pertinent. - : The pt / caregiver states he / she is not on anticoagulants. Home medication list is obtained from the patient. - Exposure Risk Screening:: None identified. Screenin:49 Screening information is obtained from the patient. Fall risk: No risks identified. kc3 Assistance ADL's: requires no assistance with activities of daily living. Abuse/DV Screen: The patient / caregiver reports he/she is: not in a situation that causes fear, pain or injury. Nutritional screening: No deficits noted. Advance Directives: Currently, there is no health care proxy. home support is adequate. Assessment: 15:47 General: Appears in no apparent distress, comfortable, Behavior is appropriate for age, kc3 cooperative. Pain: Location: chest Pain currently is 3 out of 10 on a pain scale. Neurological: Level of Consciousness is awake, alert, obeys commands, Oriented to person, place, time. Cardiovascular: Rhythm is sinus rhythm Chest pain quality is pressure, radiates Does not radiate. Respiratory: Respiratory effort is even, unlabored, Respiratory pattern is regular, symmetrical. Derm: Skin is pink, warm & dry. Musculoskeletal: Circulation, motion, and sensation intact. 16:40 General: Appears in no apparent distress, comfortable, Behavior is appropriate for age, kc3 cooperative. Pain: Location: chest Pain currently is 2 out of 10 on a pain scale. Neurological: Level of Consciousness is awake, alert, obeys commands, Oriented to person, place, time. Cardiovascular: Rhythm is sinus rhythm. Respiratory: Respiratory effort is even, unlabored, Respiratory pattern is regular, symmetrical. Derm: Skin is pink, warm & dry. 17:52 General: Appears in no apparent distress, comfortable, Behavior is appropriate for age, kc3 cooperative. Pain: Location: chest. Neurological: Level of Consciousness is awake, alert, obeys commands. Cardiovascular: Rhythm is sinus rhythm. Respiratory: Respiratory effort is even, unlabored, Respiratory pattern is regular, symmetrical. Derm: Skin is pink, warm & dry. 18:45 Pain: Location: chest Pain currently is 1 out of 10 on a pain scale. Neurological: kc3 Level of Consciousness is awake, alert, obeys commands, Oriented to person, place, time. Cardiovascular: Rhythm is sinus rhythm. Respiratory: Respiratory effort is even, unlabored. Derm: Skin is pink, warm & dry. 19:13 General: Appears in no apparent distress, comfortable, Behavior is appropriate for age, kc3 cooperative. 19:33 General: Appears in no apparent distress, comfortable, Behavior is appropriate for age, af2 cooperative. General: Assumed care of pt at this time from ANDRIY Guy. Pt updated regarding plan of care at this time. . Neurological: Level of Consciousness is awake, alert, obeys commands, Oriented to person, place, time. Cardiovascular: Rhythm is sinus rhythm No ectopy. Chest pain is denied. Respiratory: Airway is patent Respiratory effort is even, unlabored, Breath sounds are clear bilaterally. Derm: Skin is pink, warm & dry. 20:30 General: Appears in no apparent distress, comfortable, Behavior is appropriate for age, af2 cooperative. Neurological: Level of Consciousness is awake, alert, obeys commands, Oriented to person, place, time. Respiratory: Airway is patent Respiratory effort is even, unlabored. Derm: Skin is normal. 21:38 General: Appears in no apparent distress, comfortable, Behavior is appropriate for age, af2 cooperative. Neurological: Level of Consciousness is awake, alert, obeys commands, Oriented to person, place, time. Respiratory: Airway is patent Respiratory effort is even, unlabored. Derm: Skin is pink, warm & dry. Vital Signs: 14:14 BP 113 / 74; Pulse 74; Resp 18 S; Temp 97.6(O); Pulse Ox 98% on R/A; Weight 65.77 kg dd6 (R); Height 5 ft. 4 in. (162.56 cm) (R); 14:41 BP 135 / 75 (auto/); kc3 14:42 Pulse 70 MON; Pulse Ox 98% ; kc3 14:58 BP 149 / 79 (auto/); kc3 14:58 Pulse 72 MON; Pulse Ox 97% ; kc3 15:22 BP 128 / 80 (auto/); kc3 15:22 Pulse 66 MON; Pulse Ox 96% ; kc3 15:26 BP 123 / 62 (auto/); kc3 15:27 Pulse 66 MON; Pulse Ox 96% ; kc3 15:41 BP 129 / 76 (auto/); kc3 15:42 Pulse 70 MON; Pulse Ox 96% ; kc3 15:56 BP 124 / 75 (auto/); kc3 15:57 Pulse 70 MON; Pulse Ox 96% ; kc3 16:11 BP 132 / 77 (auto/); kc3 16:11 Pulse 64 MON; Pulse Ox 96% ; kc3 16:26 BP 127 / 69 (auto/); kc3 16:26 Pulse 62 MON; Pulse Ox 97% ; kc3 16:41 BP 122 / 65 (auto/); kc3 16:42 Pulse 66 MON; Pulse Ox 97% ; kc3 16:56 Pulse 68 MON; Pulse Ox 97% ; kc3 16:56 BP 123 / 67 (auto/); kc3 17:11 BP 122 / 67 (auto/); kc3 17:12 Pulse 64 MON; Pulse Ox 97% ; kc3 17:25 Pulse 66 MON; Pulse Ox 97% ; kc3 17:26 BP 128 / 71 (auto/); kc3 17:41 BP 120 / 66 (auto/); kc3 17:42 Pulse 72 MON; Pulse Ox 94% ; kc3 19:26 BP 109 / 58 (auto/); af2 19:27 Pulse 68 MON; Resp 18 S; Pulse Ox 97% on R/A; af2 19:41 BP 107 / 61 (auto/); af2 19:42 Pulse 70 MON; Resp 18 S; Pulse Ox 97% ; af2 19:56 BP 102 / 60 (auto/); af2 19:57 Pulse 78 MON; Resp 18; Pulse Ox 97% on R/A; af2 20:11 BP 110 / 66 (auto/); af2 20:12 Pulse 74 MON; Resp 18 S; Pulse Ox 96% on R/A; af2 21:39 BP 114 / 67; Pulse 78; Resp 18 S; Temp 96.8(O); Pulse Ox 97% on R/A; Pain 0/10; af2 14:14 Body Mass Index 24.89 (65.77 kg, 162.56 cm) dd6 Vitals: 14:14 Log In Time: October 16, 2016 at 14:12. dd6 14:15 RN notified that patient meets Red Flag criteria. dd6 ED Course: 14:14 Patient visited by Bhanu Stone PCA. dd6 14:14 Cathy Benedict is Private Physician. dd6 14:14 Patient moved to Waiting dd6 14:16 Patient moved to I6 / 28 hs1 14:24 EKG done. (by ED staff). Reviewed by Una Reyes MD. ct3 14:25 Triage Initiated hs1 14:27 Melissa Reyes MD is Attending Physician. br1 14:27 Malena Valero,RN is Primary Nurse. br1 14:27 Patient moved to 9 br1 14:39 Patient visited by Melissa Reyes MD. br1 14:56 Patient visited by Sofia Jain RN. ead 14:56 Basic Metabolic Profile Sent. ead 14:56 CBC with Diff Sent. ead 14:56 Cardiac Injury Profile Sent. ead 14:57 Troponin Sent. ead 14:57 Inserted saline lock: 20 gauge in right antecubital area and blood collected. The ead patient tolerated the procedure well. 15:24 Patient visited by Malena Valero,ANDRIY. kc3 15:49 The patient / caregiver is instructed regarding the plan of care and ED course. Cardiac kc3 monitor on. Pulse ox on. NIBP on. 16:26 [facility] Payment Agreement was scanned into [employer] and attached to record. ks16 16:27 Patient visited by Malena Valero,RN. kc3 17:07 Patient visited by Melissa Reyes MD. br1 17:07 Patient visited by Melissa Reyes MD. br1 17:50 Patient visited by Malena Valero RN. kc3 18:10 Patient moved to OBSERVATION br1 19:07 Alyse Rivera,RN is Primary Nurse. af2 19:35 Patient visited by Alyse Rivera RN. af2 19:35 No procedures done that require assistance. af2 19:36 Patient visited by Melissa Reyes MD. br1 20:32 EKG done. (by ED staff). Reviewed by Melissa Reyes MD. ajs 21:26 Cathy Benedict is Referral Physician. br1 21:26 Demario Ogden is Referral Physician. br1 21:39 Discontinued IV lock intact, bleeding controlled, pressure dressing applied, No af2 redness/swelling at site. 10/17 16:03 EKG-ADULT Returned. EDMS 16:03 ECG WITH READING ER PHYS Returned. EDMS 19:56 ECG/EKG was scanned into [employer] and attached to record. kf3 21:51 T-Sheet-- Draft Copy was scanned into [employer] and attached to record. klr 10/18 11:19 Chest, 2 View (pa\E\lat) Returned. EDMS 11:19 CT Chest Angio R/O PE Returned. EDMS Administered Medications: 10/16 14:45 Drug: Aspirin 324 mg [aspirin 81 mg chewable tablet (4 tabs)] Route: PO; ead 14:45 Drug: GI Cocktail - (Alum-Mag Hydroxide-Simeth Suspension 225 mg-200 mg-25 mg/5 mL 30 ead ml, Lidocaine Liquid 2 % 10 ml, Hyoscyamine Liquid 10 ml) Route: PO; 17:34 Drug: Nitrostat 0.4 mg [Nitrostat 0.4 mg sublingual tablet (1 tabs)] Route: Sublingual; kc3 18:30 Drug: Nitrostat 0.4 mg [Nitrostat 0.4 mg sublingual tablet (1 tabs)] Route: Sublingual; kc3 Order Results: Lab Order: Basic Metabolic Profile; SPEC'M 10/16/16 14:54 Test: GLUCOSE, FASTING; Value: 106; Range: 70-105; Abnormal: Above high normal; Units: MG/DL; Status: F Test: BLOOD UREA NITROGEN; Value: 20; Range: 7-18; Abnormal: Above high normal; Units: MG/DL; Status: F Test: CREATININE FOR GFR; Value: 0.77; Range: 0.55-1.02; Units: MG/DL; Status: F Test: GLOMERULAR FILTRATION RATE; Value: > 60.0; Range: >51; Status: F Test: SODIUM LEVEL; Value: 144; Range: 136-145; Units: MEQ/L; Status: F Test: POTASSIUM SERUM; Value: 4.1; Range: 3.5-5.1; Units: MEQ/L; Status: F Test: CHLORIDE LEVEL; Value: 108; Range: 98-107; Abnormal: Above high normal; Units: MEQ/L; Status: F Test: CARBON DIOXIDE LEVEL; Value: 28; Range: 21-32; Units: MEQ/L; Status: F Test: ANION GAP; Value: 8; Range: 8-16; Units: MEQ/L; Status: F Test: CALCIUM LEVEL; Value: 9.1; Range: 8.5-10.1; Units: MG/DL; Status: F Test Note: ; Units are mL/min/1.73 m2 Chronic Kidney Disease Staging per NKF: Stage I & II GFR >=60 Normal to Mildly Decreased Stage III GFR 30-59 Moderately Decreased Stage IV GFR 15-29 Severely Decreased Stage V GFR <15 Very Little GFR Left ESRD GFR <15 on RN ADVANCED Lab Order: CBC with Diff; SPEC'M 10/16/16 14:54 Test: WHITE BLOOD COUNT; Value: 5.5; Range: 4.0-10.0; Units: K/mm3; Status: F Test: RED BLOOD COUNT; Value: 4.74; Range: 4.00-5.40; Units: M/mm3; Status: F Test: HEMOGLOBIN; Value: 14.7; Range: 12.0-16.0; Units: g/dl; Status: F Test: HEMATOCRIT; Value: 43.4; Range: 36.0-47.0; Units: %; Status: F Test: MEAN CORPUSCULAR VOLUME; Value: 91.5; Range: 80.0-96.0; Units: fl; Status: F Test: MEAN CORPUSCULAR HEMOGLOBIN; Value: 31.0; Range: 27.0-33.0; Units: pg; Status: F Test: MEAN CORPUSCULAR HGB CONC; Value: 33.9; Range: 32.0-36.5; Units: g/dl; Status: F Test: RED CELL DISTRIBUTION WIDTH; Value: 13.6; Range: 11.5-14.5; Units: %; Status: F Test: PLATELET COUNT, AUTOMATED; Value: 246; Range: 150-450; Units: k/mm3; Status: F Test: NEUTROPHILS %; Value: 66.5; Range: 36.0-66.0; Abnormal: Above high normal; Units: %; Status: F Test: LYMPH %; Value: 20.2; Range: 24.0-44.0; Abnormal: Below low normal; Units: %; Status: F Test: MONO %; Value: 6.2; Range: 0.0-5.0; Abnormal: Above high normal; Units: %; Status: F Test: EOS %; Value: 3.0; Range: 0.0-3.0; Units: %; Status: F Test: BASO %; Value: 2.1; Range: 0.0-1.0; Abnormal: Above high normal; Units: %; Status: F Test: LARGE UNSTAINED CELL %; Value: 2.1; Range: 0.0-4.0; Units: %; Status: F Test: NEUTROPHILS #; Value: 3.7; Range: 1.8-7.7; Units: K/mm3; Status: F Test: LYMPH #; Value: 1.2; Range: 1.5-4.5; Abnormal: Below low normal; Units: K/mm3; Status: F Test: MONO #; Value: 0.3; Range: 0.0-0.8; Units: K/mm3; Status: F Test: EOS #; Value: 0.2; Range: 0.0-0.50; Units: K/mm3; Status: F Test: BASO #; Value: 0.1; Range: 0.0-0.2; Units: K/mm3; Status: F Test: LARGE UNSTAINED CELL #; Value: 0.1; Range: 0.0-0.4; Units: K/mm3; Status: F Lab Order: Cardiac Injury Profile; SPEC'M 10/16/16 14:54 Test: CPK CREATINE PHOSPHOKINASE; Value: 71; Range: 26-192; Units: U/L; Status: F Test: CK-MB VALUE MASS; Value: 1.0; Range: 0.0-3.6; Units: NG/ML; Status: F Test: MB/CK RELATIVE INDEX; Value: 1.40; Range: < OR =4; Status: F Test Note: ; DIAGNOSIS CRITERIA MMB ng/ml Relative Index (RI) NON-AMI < or = 5 N/A REID ZONE > 5 < or = 4 AMI > 5 > 4 Lab Order: Troponin; SPEC'M 10/16/16 14:54 Test: TROPONIN I; Value: < 0.02; Range: < 0.10; Units: NG/ML; Status: F Test Note: ; Troponin I Reference Interval for [place] LOCI: 99th Percentile= 0.00-0.045 ng/ml Risk Stratification: <= 0.10 ng/ml Decreased Risk for Adverse Clinical Events. 0.10-1.50 ng/ml Increased Risk for Adverse Clinical Events. Evaluation of additional criterion and/or repeat testing in 2-6 hours is suggested to rule out myocardial damage. >= 1.50 ng/ml Indicative of Myocardial Injury. Lab Order: CARDIAC MARKER PANEL; SPEC'M 10/16/16 20:19 Test: CPK CREATINE PHOSPHOKINASE; Value: 58; Range: 26-192; Units: U/L; Status: F Test: CK-MB VALUE MASS; Value: 1.0; Range: 0.0-3.6; Units: NG/ML; Status: F Test: MB/CK RELATIVE INDEX; Value: 1.72; Range: < OR =4; Status: F Test: TROPONIN I; Value: < 0.02; Range: < 0.10; Units: NG/ML; Status: F Test Note: ; DIAGNOSIS CRITERIA MMB ng/ml Relative Index (RI) NON-AMI < or = 5 N/A REID ZONE > 5 < or = 4 AMI > 5 > 4 Radiology Order: EKG-ADULT Test: EKG-ADULT REASON FOR EXAMINATION: Chest Pain; Stationary ECG Study; [facility] - ED; ; Test Date: 2016-10-16; Pat Name: RADHA FORD Department:; Room: -; Gender: F 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 The cardiac size is normal; ; The zhane, mediastinum, and bony thorax are unremarkable.; ; Impression:; ; Negative PA and lateral chest. There is no interval change.; ; ; Signed by; Zohaib Hale MD 10/16/2016 04:35 P; Radiology Order: CT Chest Angio R/O PE Test: CT Chest Angio R/O PE REASON FOR EXAMINATION: Chest Pain; Chest CT, CT pulmonary angiography:; ; There are no comparison chest CT studies.; ; There are no emboli in the pulmonary trunk or central pulmonary arteries. There; are no emboli in the pulmonary artery lobe or segment branches.; ; There are no infiltrates or effusions. There are no masses or nodules.; ; There is no mediastinal, hilar or axillary adenopathy.; ; The thoracic aorta is unremarkable. Cardiac size is normal. There is no; pericardial effusion.; ; The visualized upper abdominal contents are unremarkable.; ; Impression:; ; There is no pulmonary embolus. 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 kc3 19:35 Discharge Assessment: patient administered narcotics - no. Condition: stable. Property af2 :Personal belongings accompany Pt. 21:26 Discharge ordered by Provider. br1 21:37 The following High Risk Discharge criteria are identified: None. Discharged to home af2 ambulatory. Discharge instructions given to patient, Instructed on discharge instructions, follow up and referral plans. Demonstrated understanding of instructions, Pt was receptive of discharge instructions/ teaching. 21:39 Patient left the ED. af2 Signatures: Dispatcher [employer] EDMS Yossi Madsen, Reg Reg kf3 Melissa Reyes MD MD br1 Bhanu Stone, SHIPPING RECEIVING MANAGER SHIPPING RECEIVING MANAGER dd6 Jyothi Aden RN RN hs1 Agustina Webster, SHIPPING RECEIVING MANAGER SHIPPING RECEIVING MANAGER ct3 Rema Bey EmilyRN RN Alyse Cardona RN RN af2 Malena Valero RN RN kc3 Eli Stroud, Reg Reg ks16 Estefany Chu Chart Complete MTDD
== END 2016-10-16 21:39 | disposition home or self-care (01) ==
LOC: M ED 14:13
DX: R07.9 Chest pain, unspecified (principal); D64.9 Anemia, unspecified; G47.00 Insomnia, unspecified; Z79.899 Other long term (current) drug therapy; Z88.1 Allergy status to other antibiotic agents
CPT/HCPCS: 36415; 71020; 71275; 80048; 82550; 82553; 85025; 93005; 93041; 99285; Q9967

== ENCOUNTER → 2017-01-20 | Day surgery (SDC) | payer OTHER ==
[~2017-01-20] VITALS: Ht 162.6 cm; Wt 65.8 kg
[~2017-01-20] MED LIST: AMBI12.52 PO; ESTRCAP PO; FERR325T3 PO; IBUPROFEN 600 MG TAB PO PRN; KETOROLAC 60 MG/2 ML VIAL (J1885) As Ordered ONE; LIDOCAINE 2% INJ 100 MG/5 ML SDV (FOR ANES.) As Ordered ONE; LR 1,000 ML IV SCH; MEPERIDINE INJ 25 MG/ML VIAL (J2175) IV PRN; METOCLOPRAMIDE INJ 10MG/2ML VIAL (J2765) As Ordered ONE; METOCLOPRAMIDE INJ 10MG/2ML VIAL (J2765) IV PRN; MIDAZOLAM INJ 2 MG/2 ML VIAL (J2250) As Ordered ONE; ONDANSETRON 4MG/2ML VIAL (J2405) As Ordered ONE; ONDANSETRON 4MG/2ML VIAL (J2405) IV PRN; PERCOCET 5MG/325MG TAB PO PRN; PROPOFOL 200 MG/20 ML VIAL As Ordered ONE; STOO100C PO; VITA-112 PO; dexameTHASONE 4 MG/ML 1ML VIAL (J1100) As Ordered ONE; fentaNYL 100 MCG/2 ML INJECTION (J3010) As Ordered ONE; fentaNYL 100 MCG/2 ML INJECTION (J3010) IV PRN
[2017-01-20 14:00] VITALS: BP 132/81
--- NOTE | 2017-01-20 18:36 | RO ---
DATE OF PROCEDURE: 01/20/2017 PREOPERATIVE DIAGNOSIS: Postmenopausal bleeding, abnormal ultrasound. POSTOPERATIVE DIAGNOSIS: Postmenopausal bleeding, abnormal ultrasound. Small fibroid and a broad-based polyp, both of which were removed. PROCEDURE: Dilation and curettage, hysteroscopy, myomectomy. SURGEON: Dr. Steph Mchugh SIGNAL OPERATOR LINGUIST: ANESTHESIA: LMA. DESCRIPTION OF PROCEDURE: Radha was brought to the operating room where sufficient LMA anesthesia was induced, and she was prepped, draped and positioned in the usual sterile fashion with the weighted speculum placed, the bladder emptied and the anterior aspect of the cervix grasped with a single-tooth tenaculum. With some effort, this uterus would be approachable from below. The cervix was dilated, sounded to 8 and the MyoSure hysteroscope was then placed. As noted in the operative photos, at the right fundus anteriorly, there was a small fibroid and towards the cornua there on the right side and across the posterior wall of the uterus towards the left side posteriorly near the cornua, there was a small polyp, sort of broad-based and then sort of broad-based overgrowth of the endometrium in a kind of polypoid fashion over the posterior aspect of the uterus as well. Using the MyoSure REACH, we were able to resect all of these tissues. We also sampled 360 degrees of endometrium circumferentially and sampled in the lower uterine segment as well as documented in the photos. Having cleared this tissue and gotten a good sample and removed the fibroid and the polypoid overgrowth/polyps, we then ended the procedure. Estimated blood loss for the procedure was less than 5 mL. Fluid replacement was crystalloid. Complications: None. Condition and Disposition: Radha tolerated the procedure well and was recovering in the recovery room in good condition.
== END | disposition home or self-care (01) ==
LOC: M SDC 10:00
PROVIDERS: ATTEND Obstetrics & Gynecology
DX: N95.0 Postmenopausal bleeding (principal); N84.0 Polyp of corpus uteri; D25.9 Leiomyoma of uterus, unspecified; K21.9 Gastro-esophageal reflux disease without esophagitis; R07.9 Chest pain, unspecified; D64.9 Anemia, unspecified; Z88.1 Allergy status to other antibiotic agents; Z79.899 Other long term (current) drug therapy
CPT/HCPCS: 58558; 88305; J1100; J1885; J2250; J2405; J2765; J3010

== ENCOUNTER → 2018-09-15 | Outpatient (REF) | payer OTHER ==
[~2018-09-15] MED LIST changes: -IBUPROFEN 600 MG TAB PO PRN; -KETOROLAC 60 MG/2 ML VIAL (J1885) As Ordered ONE; -LIDOCAINE 2% INJ 100 MG/5 ML SDV (FOR ANES.) As Ordered ONE; -LR 1,000 ML IV SCH; -MEPERIDINE INJ 25 MG/ML VIAL (J2175) IV PRN; -METOCLOPRAMIDE INJ 10MG/2ML VIAL (J2765) As Ordered ONE; -METOCLOPRAMIDE INJ 10MG/2ML VIAL (J2765) IV PRN; -MIDAZOLAM INJ 2 MG/2 ML VIAL (J2250) As Ordered ONE; -ONDANSETRON 4MG/2ML VIAL (J2405) As Ordered ONE; -ONDANSETRON 4MG/2ML VIAL (J2405) IV PRN; -PERCOCET 5MG/325MG TAB PO PRN; -PROPOFOL 200 MG/20 ML VIAL As Ordered ONE; -dexameTHASONE 4 MG/ML 1ML VIAL (J1100) As Ordered ONE; -fentaNYL 100 MCG/2 ML INJECTION (J3010) As Ordered ONE; -fentaNYL 100 MCG/2 ML INJECTION (J3010) IV PRN
[2018-09-15 14:53] LABS: BASO % 0.7 % (0.0-1.0); EOS # 0.2 10^3/uL (0.0-0.50); EOS % 3.5 % (0.0-3.0); HEMATOCRIT 43.7 % (36.0-47.0); HEMOGLOBIN 14.9 g/dl (12.0-15.5); LYMPH # 1.5 10^3/uL (1.5-4.5); LYMPH % 31.6 % (24.0-44.0); MEAN CORPUSCULAR HEMOGLOBIN 31.7 pg (27.0-33.0); MEAN CORPUSCULAR HGB CONC 34.1 g/dl (32.0-36.5); MONO # 0.3 10^3/uL (0.0-0.8); MONO % 5.9 % (0.0-5.0); NEUTROPHILS # 2.7 10^3/uL (1.8-7.7); NEUTROPHILS % 58.1 % (36.0-66.0); PLATELET COUNT, AUTOMATED 271 10^3/uL (150-450); WHITE BLOOD COUNT 4.6 10^3/uL (4.0-10.0)
[2018-09-15 15:01] LABS: C REACTIVE PROTEIN QUANTITATIV 0.66 MG/DL (0.00-0.30); RHEUMATOID FACTOR QUANT < 10.0 IU/ML (<15.0); URIC ACID 5.4 MG/DL (2.6-6.0)
[2018-09-15 15:16] LABS: ERYTHROCYTE SEDIMENTATION RATE 4 mm/hr (0-30)
[2018-09-16 14:08] LABS: ANTINUCLEAR ANTIBODIES DIRECT Negative (Negative); Lyme Disease IgG/IgM Antibodie <0.91 ISR (0.00-0.90); Lyme Disease IgM Ab Quantitati <0.80 index (0.00-0.79)
== END ==
LOC: M LABDRAW1 10:37
PROVIDERS: ATTEND Internal Medicine Endocrinology, Diabetes & Metabolism
DX: S93.401D Sprain of unspecified ligament of right ankle, subsequent encounter (principal); W18.30XD Fall on same level, unspecified, subsequent encounter; Y92.009 Unspecified place in unspecified non-institutional (private) residence as the place of occurrence of the external cause

== ENCOUNTER → 2018-10-24 | Outpatient (CLI) | payer OTHER | LOC: M WUC 10:34 | PROVIDERS: ATTEND Nurse Practitioner Women's Health | DX: O92.6 Galactorrhea (principal) ==

== ENCOUNTER → 2018-11-09 | Outpatient (CLI) | payer OTHER ==
--- NOTE | 2018-11-13 18:40 | SLEEPCENT ---
DATE OF PROCEDURE: 11/09/2018 ORDERED BY: Negra Lopez Nocturnal polysomnography was performed for evaluation of sleep architecture in this patient with excessive somnolence and nonrestorative sleep with irregular breathing patterns noted in sleep. 8 hours and 56 minutes of data were reviewed. There were 427 minutes of sleep identified. Sleep latency was prolonged at 74.5 minutes. Rapid eye movement (REM) latency was normal at 80 minutes. Sleep architecture was fairly good with four REM cycles noted. Overall sleep efficiency was 82%. The electrocardiogram showed a sinus rhythm with an average heart rate of 72 beats per minute. EEG showed normal waveforms for awake and sleep. There were 281 respiratory events identified of 10 seconds in duration or greater for an apnea-hypopnea index of 39.5. The events were primarily obstructive, not exclusive to sleep stage nor body posture. Arousals from respiratory events occurred 7.2 times per hour and oxygen desaturations were seen into the low 80s. Remaining measures of sleep physiology were normal. IMPRESSION: Obstructive sleep apnea syndrome (G47.33). Apnea-hypopnea index 39.5. RECOMMENDATIONS: The patient should be encouraged to return to the sleep disorder center for pressure therapy. In the interim, alcohol and sedative avoidance should be practiced and caution exercised during the operation of motor vehicles.
== END ==
LOC: M SLEEP 19:50
PROVIDERS: ATTEND Nurse Practitioner Family
DX: G47.33 Obstructive sleep apnea (adult) (pediatric) (principal)

== ENCOUNTER → 2019-01-08 | Outpatient (CLI) | payer OTHER | LOC: M SLEEP 19:55 | PROVIDERS: ATTEND Nurse Practitioner Family | DX: G47.33 Obstructive sleep apnea (adult) (pediatric) (principal) ==

== ENCOUNTER → 2019-01-08 | Outpatient (CLI) | payer OTHER ==
--- NOTE | 2019-01-08 14:38 | REP ---
Chest x-ray: Two views. History: Cough. Comparison study: October 16, 2016. Findings: The lungs are well inflated and clear. Pleural angles are sharp. Heart size is normal. Pulmonary vasculature is not increased. No significant bony abnormalities seen. Impression: No active disease. Electronically Signed by Samm Vo MD 01/08/2019 02:29 P
== END ==
LOC: M WUC 13:39
PROVIDERS: ATTEND Physician Assistant
DX: R05 Cough (principal)

== ENCOUNTER 2019-02-15 11:46 | Day surgery (SDC) | payer OTHER ==
--- NOTE | 2019-02-09 22:54 | CR ---
DATE OF CONSULTATION: 02/09/2019 Preoperative consultation for dilation and curettage (D and C) hysteroscopy 02/15/2019, Dr. Mchugh, at [facility]. Dear Dr. Mchugh, Thank you for asking me to see Ms. Radha Azul in consultation prior to her hysteroscopy and D and C. Ms. Azul reports that she is a 58-year-old female with a past medical history of postmenopausal bleeding who had a D and C hysteroscopy in 2017 for similar findings. Patient reports bleeding has resolved. Ultrasound apparently showed some cystic changes and she is proceeding with her D and C hysteroscopy 02/15/2019 with yourself at [facility]. Patient reports recent diagnosis of sleep apnea, just starting the use her continuous positive airway pressure (C-PAP) , is wearing it overnight, but she finds with movement and shifting, she does get a leak, which wakes her up. She continues to a use Ambien at bedtime. She is hoping to be able to get off Ambien. Patient has history of Paxil use. She has been able to wean her self off this with good results. The patient reports recent upper respiratory infections (URIs). First used Z-Alfredo, then doxycycline, now is concerned about possible vulva vaginal yeast infection, feeling as if she has fissure or a tear after having had a bikini wax, but no bikini wax treatments where her pain is. She denies any significant discharge. Patient has history of palpitations. She has seen cardiology in the past with negative stress testing and no significant pathology. The patient is active and denies any fevers or chills, chest pain or shortness of breath, nausea or vomiting. She has been active, traveling to see her children, who recently removed, as well as trip to [place]. REVIEW OF SYSTEMS: Otherwise negative. PAST MEDICAL HISTORY: 1. Fibrocystic breast disease. Follows with [facility]. 2. Right wrist surgery 2003. 3. Left knee anterior cruciate ligament (ACL) reconstruction 2003. 4. G3, P3, spontaneous AB times three requiring D C, tubal ligation. 5. Herpes simplex with stress/menses 6. Seasonal allergic rhinitis. 7. A history of iron deficiency anemia (ELBA) secondary to menorrhagia. 8. History of chest pain, palpitations with negative stress testing 11/01/2018. 9. Postmenopausal bleeding status post D and C 01/20/2017. 10. Obstructive sleep apnea (NANNETTE) on C-PAP 2018. 11. Insomnia managed with Ambien. 12. Dysthymia. 13. History of Paxil use. MEDICATION ALLERGIES: KEFLEX MEDICATIONS: - Afrin as needed for airline flights - aspirin 325 mg as needed for headache - Benadryl as needed for allergies - ferrous sulfate 325 mg daily - hydrocodone as needed for pain - hydroxyzine as needed for sleep - ibuprofen as needed for muscle aches - magnesium daily for sleep - Mucinex as needed for chest congestion - stool softeners as needed for constipation - pseudoephedrine as needed for sinus congestion - Tylenol as needed for headache - Valtrex as needed for herpes outbreaks - vitamin D3 daily - vitamin C daily - zolpidem ER 6.25 at bedtime. 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 Has three children, one in dental school in [place], two just recently moved at [facility] and she has assisted them in their move. Her is also retired. Patient has never smoked. Occasional alcohol. FAMILY HISTORY: Father had coronary artery disease, reflux, rheumatoid arthritis, anxiety. Mother has diabetes. Children are healthy. Two brothers with hypertension, a sister with prediabetes, hypertension and rheumatoid arthritis. PHYSICAL EXAMINATION: She is an overweight female in no acute distress. Her weight is 162, blood pressure 110/72, heart rate of 70. HEENT EXAM: Head is normocephalic. Neck is supple. Pupils equal, reactive to light. Extraocular movements are intact. RESPIRATORY: Clear to auscultation, resonant to percussion. CARDIOVASCULAR: Regular rate and rhythm. No murmur, rub, gallop. ABDOMEN: Soft, nontender. No hepatosplenomegaly. Extremities: No cyanosis, clubbing or edema some early osteoarthritis (OA) changes of the proximal interphalangeal (PIP) joints. DERMATOLOGIC: No rashes, bruises. NEUROLOGIC: Alert and oriented and intact. LABORATORY DATA: From today 02/09/2019: Patient has normal metabolic profile, essentially normal complete blood count (CBC), with a slightly low white count at 3.7, with neutrophils at 1.9. Her EKG today showed normal sinus rhythm, rate of 80, axis of 39, normal VA, QRS, slight increase in QTc to 459 milliseconds, normal R-wave progression. No atrial or ventricular hypertrophy. No pathologic Q-waves. EKG is compared to an EKG from 03/20/2018 with no significant change. IMPRESSION: Ms. Radha Azul is a 58-year-old female with cardiovascular risk factors positive only for age and family history, who has no signs or symptoms indicative of cardiovascular ischemia and is felt to be at low risk for cardiovascular complications from the proposed surgical intervention which can be further minimized by the following: PROBLEMS: 1. Seasonal allergy. Continue as needed medications as needed perioperatively and hold a.m. of surgery. 2. Iron deficiency anemia (ELBA). Continue vitamin C, iron perioperatively, but hold a.m. of surgery. 3. Insomnia. Continue the zolpidem perioperatively. Commended for her efforts to try to minimize her dosing. She will try to shift to hydroxyzine as tolerated. 4. Dysthymia. Patient doing well and continues off Paxil. 5. Palpitations. Improved EKG shows no pathology. Electrolytes stable. No need for further evaluation/treatment. 6. Herpes. Recurrent. Continue as needed Valtrex. 7. Obstructive sleep apnea (NANNETTE). Continue C-PAP. Commended for efforts. I have encouraged him to bring this to surgery. Thank you very much for this consultation. Please call with questions or concerns.
[~2019-02-15] VITALS: Ht 162.6 cm; Wt 75.5 kg
[~2019-02-15 11:46] MED LIST changes: +BENA25CA4 PO; +LR 1,000 ML IV ONE
[2019-02-15] MEDS ORDERED: MIDAZOLAM INJ 2 MG/2 ML VIAL (J2250) As Ordered ONE (13:27)
[2019-02-15] MEDS ORDERED: PROPOFOL 200 MG/20 ML VIAL As Ordered ONE (14:08)
[2019-02-15] MEDS ORDERED: LIDOCAINE 2% INJ 100 MG/5 ML SDV (FOR ANES.) As Ordered ONE (14:09)
[2019-02-15] MEDS ORDERED: fentaNYL 100 MCG/2 ML INJECTION (J3010) As Ordered ONE (14:26)
[2019-02-15] MEDS ORDERED: ONDANSETRON 4MG/2ML VIAL (J2405) As Ordered ONE (14:27)
[2019-02-15] MEDS ORDERED: dexameTHASONE 4 MG/ML 1ML VIAL (J1100) As Ordered ONE ×2 (14:27→14:28)
[2019-02-15] MEDS ORDERED: KETOROLAC 60 MG/2 ML VIAL (J1885) As Ordered ONE (15:01)
[2019-02-15] MEDS ORDERED: METOCLOPRAMIDE INJ 10MG/2ML VIAL (J2765) IV PRN (15:45)
[2019-02-15] MEDS ORDERED: PERCOCET 5MG/325MG TAB PO PRN (15:45)
[2019-02-15] MEDS ORDERED: IBUPROFEN 600 MG TAB PO PRN (15:45)
[2019-02-15] MEDS ORDERED: ONDANSETRON 4MG/2ML VIAL (J2405) IV PRN (15:45)
[2019-02-15] MEDS ORDERED: fentaNYL 100 MCG/2 ML INJECTION (J3010) IV PRN (15:45)
[2019-02-15] MEDS ORDERED: LR 1,000 ML IV SCH ×2 (15:45)
[2019-02-15 16:44] VITALS: BP 128/83
--- NOTE | 2019-02-16 07:51 | RO ---
DATE OF PROCEDURE: 02/15/2019 PREOPERATIVE DIAGNOSIS/INDICATION FOR SURGERY: Postmenopausal bleeding. POSTOPERATIVE DIAGNOSIS: Postmenopausal bleeding. PROCEDURE: Dilatation and curettage, hysteroscopy, and MyoSure resection. SURGEON: Steph Mchugh MD MANUFACTURING INSPECTOR: None. ANESTHESIA: Laryngeal mask airway (LMA). BRIEF DESCRIPTION OF PROCEDURE AND FINDINGS: Radha was brought to the operating room where LMA anesthesia was induced and she was prepped, draped and positioned in the usual sterile fashion. Bladder was emptied and the cervix grasped with a single tooth tenaculum. The cervix was carefully dilated and the hysteroscope placed, and the endometrial cavity visualized. There was some mild overgrowth and a kind of broad based polypoid overgrowth posteriorly, but really no out and out polyps, a little irregularity there. We sampled with the MyoSure and resected, and below that there may have been a little bit of a tiny incidental fibroid giving that thickened appearance there, but there really was not any separate polyp or separate fibroid from that, so we did use the MyoSure light to resect the tissues and got very good sampling and then took the curette as well and after this procedure was ended. ESTIMATED BLOOD LOSS FOR PROCEDURE: About 5 mL. FLUID REPLACEMENT: Crystalloid. COMPLICATIONS: None. CONDITION AND DISPOSITION: Radha tolerated this procedure well and was recovering in the recovery room in good condition.
== END 2019-02-15 17:01 | disposition home or self-care (01) ==
LOC: M SDC 11:46
PROVIDERS: ATTEND Obstetrics & Gynecology
DX: N95.0 Postmenopausal bleeding (principal); K21.9 Gastro-esophageal reflux disease without esophagitis; G47.30 Sleep apnea, unspecified; Z79.899 Other long term (current) drug therapy; Z88.1 Allergy status to other antibiotic agents
CPT/HCPCS: 58558; 88305; J1100; J1885; J2250; J2405; J3010

== ENCOUNTER → 2019-03-27 | Outpatient (REF) | payer OTHER ==
[~2019-03-27] MED LIST changes: -LR 1,000 ML IV ONE; +MM S100C PO; -STOO100C PO
[2019-03-27 13:33] LABS: C REACTIVE PROTEIN QUANTITATIV 0.65 MG/DL (0.00-0.30); RHEUMATOID FACTOR QUANT < 10.0 IU/ML (<15.0)
[2019-03-29 00:06] LABS: ANTINUCLEAR ANTIBODIES DIRECT Negative (Negative)
== END ==
LOC: M LAB REF 12:41
PROVIDERS: ATTEND Nurse Practitioner Family
DX: M25.50 Pain in unspecified joint (principal)

== ENCOUNTER → 2019-04-19 | Outpatient (CLI) | payer OTHER | LOC: M LAB 13:01 | PROVIDERS: ATTEND Physician Assistant Surgical | DX: M76.71 Peroneal tendinitis, right leg (principal) ==

== ENCOUNTER → 2019-08-25 | Outpatient (CLI) | payer OTHER ==
--- NOTE | 2019-08-26 09:35 | REP ---
LEFT ANKLE COMPLETE: 08/25/2019. CLINICAL HISTORY: Ankle pain. States injury lateral aspect. FINDINGS: No prior study. Four views were provided. There is prominent soft tissue swelling anterolateral aspect of the ankle. There is a plantar calcaneal spur without Achilles insertional spur. Subtalar joints intact. Talonavicular and calcaneocuboid joints are normal. There is prominent soft tissue swelling all around the ankle, and greater laterally and anteriorly. Some irregularity at the distal tip of the fibula. An irregular ossific density is seen that is fairly well marginated on one edge but not on others. Extensive swelling nearby. This could be acute or [id number] avulsion, possibly all old avulsion. Please correlate clinically. Electronically Signed by Lalo Torres MD 08/26/2019 10:19 A
== END ==
LOC: M WUC 11:55
PROVIDERS: ATTEND Physician Assistant
DX: M25.572 Pain in left ankle and joints of left foot (principal)

== ENCOUNTER 2020-05-17 01:27 | Emergency (ER) | payer OTHER ==
[~2020-05-17] VITALS: Ht 162.6 cm; Wt 76.4 kg
[2020-05-17] MEDS ORDERED: ZOLP6.2517 (01:44)
[2020-05-17] MEDS ORDERED: ROSU10TA6 (01:44)
[2020-05-17 01:59] LABS: BASO % 0.6 % (0.0-1.0); EOS # 0.1 10^3/uL (0.0-0.5); EOS % 1.4 % (0.0-3.0); HEMATOCRIT 47.9 % (36.0-47.0); HEMOGLOBIN 16.1 g/dl (12.0-15.5); LYMPH # 2.4 10^3/uL (1.5-5.0); LYMPH % 34.4 % (24.0-44.0); MEAN CORPUSCULAR HEMOGLOBIN 31.1 pg (27.0-33.0); MEAN CORPUSCULAR HGB CONC 33.6 g/dl (32.0-36.5); MEAN CORPUSCULAR VOLUME 92.5 fl (80.0-96.0); MONO # 0.6 10^3/uL (0.0-0.8); MONO % 8.6 % (0.0-5.0); NEUTROPHILS # 3.8 10^3/uL (1.5-8.5); NEUTROPHILS % 54.7 % (36.0-66.0); PLATELET COUNT, AUTOMATED 257 10^3/uL (150-450); RED BLOOD COUNT 5.18 10^6/uL (4.00-5.40)
[2020-05-17 02:29] LABS: BLOOD UREA NITROGEN 13 MG/DL (7-18); CALCIUM LEVEL 9.5 MG/DL (8.5-10.1); CARBON DIOXIDE LEVEL 30 MEQ/L (21-32); CHLORIDE LEVEL 108 MEQ/L (98-107); CK-MB VALUE MASS < 1.0 NG/ML (<3.6); CPK CREATINE PHOSPHOKINASE 85 U/L (26-192); CREATININE FOR GFR 0.92 MG/DL (0.55-1.30); GLOMERULAR FILTRATION RATE > 60.0 (>51); GLUCOSE, FASTING 97 MG/DL (70-100); MB/CK RELATIVE INDEX 1.18 (< OR =4); POTASSIUM SERUM 3.8 MEQ/L (3.5-5.1); SODIUM LEVEL 143 MEQ/L (136-145); TROPONIN I < 0.02 NG/ML (< 0.10)
[2020-05-17] MEDS ORDERED: ISOVUE-370 76% 100ML VIAL As Ordered ONE (03:08)
--- NOTE | 2020-05-17 03:40 | REPVR ---
PROCEDURE INFORMATION: Exam: XR Chest, 1 View Exam date and time: 05/17/20 (2:31am) Age: 59 years old Clinical indication: Chest pain TECHNIQUE: Imaging protocol: Portable CXR Views: 1 view COMPARISON: Chest films of 10/16/16 FINDINGS: Lungs: Unremarkable. No consolidation. Pleural space: Unremarkable. No pleural effusions. No pneumothorax. Heart/Mediastinum: Unremarkable. No cardiomegaly. Bones/joints: Unremarkable. IMPRESSION: No acute findings. The lung haney remain clear. Electronically signed by: Sherri Rodriguez On 05/17/2020 03:40:40 AM
--- NOTE | 2020-05-17 03:45 | REPVR ---
PROCEDURE INFORMATION: Exam: CT Angiography Chest with Contrast Exam date and time: 05/17/20 (3:11am) Age: 59 years old Clinical indication: Chest pain TECHNIQUE: Imaging protocol: Computed tomographic angiography of the chest with intravenous contrast. 3D rendering (Not supervised by radiologist): MIP and/or 3D reconstructed images were created by the technologist. Radiation optimization: All CT scans at this facility use at least one of these dose optimization techniques: automated exposure control; mA and/or kV adjustment per patient size (includes targeted exams where dose is matched to clinical indication); or iterative reconstruction. Contrast material: Iso Contrast volume: 75 ml Contrast route: IV COMPARISON: CTA CHEST of 10/16/16 FINDINGS: Pulmonary arteries: Normal. No pulmonary emboli. Aorta: Unremarkable. No aortic aneurysm. No aortic dissection. Lungs: Unremarkable. No consolidation. No masses. Pleural space: Unremarkable. No pneumothorax. No pleural effusions. Heart: Unremarkable. No cardiomegaly. No pericardial effusion. Lymph nodes: Unremarkable. No enlarged lymph nodes. Bones/joints: Unremarkable. No acute fracture. Soft tissues: Unremarkable. Upper abdomen: Left hepatic lobe cyst (1.7 cm size) (unchanged). Small hiatal hernia. IMPRESSION: No acute findings. The lung haney remain clear. No filling defects suspicious for pulmonary emboli are seen. There is no CT evidence of aortic dissection nor leakage. No aortic aneurysm is appreciated. Electronically signed by: Sherri Rodriguez On 05/17/2020 03:44:58 AM
[2020-05-17 05:21] LABS: CK-MB VALUE MASS < 1.0 NG/ML (<3.6); CPK CREATINE PHOSPHOKINASE 73 U/L (26-192); MB/CK RELATIVE INDEX 1.37 (< OR =4); TROPONIN I < 0.02 NG/ML (< 0.10)
[2020-05-17] MEDS ORDERED: PROT1TAB2 PO (05:25)
--- NOTE | 2020-05-28 09:51 | ECGEPIP ---
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
--- NOTE | 2020-06-03 14:53 | ECGEPIP ---
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
== END 2020-05-17 05:30 | disposition home or self-care (01) ==
LOC: M ED 01:27
DX: R07.89 Other chest pain (principal); K21.9 Gastro-esophageal reflux disease without esophagitis; R94.31 Abnormal electrocardiogram [ECG] [EKG]; E78.5 Hyperlipidemia, unspecified; D50.9 Iron deficiency anemia, unspecified; Z88.1 Allergy status to other antibiotic agents; Z79.899 Other long term (current) drug therapy
CPT/HCPCS: 36415; 71045; 71275; 80048; 82550; 82553; 84484; 85025; 93005; 93041; 94760; 99284; Q9967